=== PATIENT | female | born 2000 | race Caucasian/White ===

== ENCOUNTER 2023-02-11 18:36 | Emergency (ER) | payer OTHER ==
[~2023-02-11] VITALS: Ht 160 cm; Wt 59.0 kg
[2023-02-11 19:31] LABS: Urine Bacteria NONE SEEN /hpf (None Seen); Urine Blood Negative /uL (Negative); Urine Mucus FEW (None Seen); Urine Specific Gravity 1.023 (1.001-1.035); Urine WBC 1 /hpf (0 - 5)
[2023-02-11] MEDS ORDERED: AZIT250T9 PO (22:11)
[2023-02-11] MEDS ORDERED: ACET-1158 PO (22:11)
[2023-02-11] MEDS ORDERED: cefTRIAXone SOD 1,000 MG VL IM ONE (22:15)
[2023-02-11 23:10] VITALS: BP 126/78
== END 2023-02-11 23:46 | disposition home or self-care (01) ==
LOC: ER 18:36
DX: J03.90 Acute tonsillitis, unspecified (principal); Z88.6 Allergy status to analgesic agent; Z88.1 Allergy status to other antibiotic agents
CPT/HCPCS: 81001; 96372; 99283; J0696